=== PATIENT | female | born 1990 | race Caucasian/White ===

== ENCOUNTER 2018-08-13 20:51 | Emergency (ER) | payer BC ==
[2018-08-13 21:05] VITALS: BP 133/85; PULSE 86; TEMP 98.1; BMI 19.9
[2018-08-13] MEDS ORDERED: IBUPROFEN 600 MG TABLET (FP) PO ONE (21:06)
--- NOTE | 2018-08-13 21:06 | PDOC ---
Rapid Medical Evaluation Time Seen by Provider: 08/13/18 21:02 Medical Evaluation: 08/13/18 21:02 Pt presents to the ED for r shoulder pain after falling down a flight of steps. No LOC or head trauma. LMP 06/15/18, but hx of irregular cycles. Exam: Limited ROM in r shoulder with external rotation and abduction Orders: x-ray, motrin Pt to proceed to the ED for further evaluation Discharge Disposition - Diagnosis Shoulder pain, right - Referrals - Patient Instructions - Post Discharge Activity
--- NOTE | 2018-08-13 22:34 | PDOC ---
History of Present Illness - General Chief Complaint: Pain, Acute Stated Complaint: SHOLDER PAIN Time Seen by Provider: 08/13/18 21:02 - History of Present Illness Initial Comments: 08/13/18 22:24 27-year-old female without comorbidities presents for evaluation of right shoulder pain. She states she slipped going down the steps and somehow right arm landed behind her. She describes a subluxation. Past History - Past Medical History Allergies/Adverse Reactions: Allergies Allergy/AdvReac Type Severity Reaction Status Date / Time No Known Allergies Allergy Verified 08/13/18 21:18 Home Medications: Ambulatory Orders NK [No Known Home Medication] 08/13/18 - Suicide/Smoking/Psychosocial Hx Smoking History: Never smoked Hx Alcohol Use: No Drug/Substance Use Hx: No Review of Systems - Review of Systems Musculoskeletal: Yes: Joint Pain *Physical Exam - Vital Signs Last Vital Signs Temp Pulse Resp BP Pulse Ox 98.1 F 86 20 133/85 99 08/13/18 21:02 08/13/18 21:02 08/13/18 21:02 08/13/18 21:02 08/13/18 21:02 - Physical Exam Comments: 08/13/18 22:25 Right shoulder skin color and temperature are normal. There is diffuse nonspecific tenderness. Passive range of motion 0-30. She resist range of motion beyond that. She has full internal and external rotation without discomfort. She is unable to tolerate stability testing or super spinatus isolation. She has no gross sensorimotor deficits she is neurovascularly intact. Moderate Sedation - Procedure Monitoring Vital Signs: Procedure Monitoring Vital Signs Temperature 98.1 F 08/13/18 21:02 Pulse Rate 86 08/13/18 21:02 Respiratory Rate 20 08/13/18 21:02 Blood Pressure 133/85 08/13/18 21:02 O2 Sat by Pulse Oximetry (%) 99 08/13/18 21:02 ED Treatment Course - Medications Given in the ED: ED Medications Discontinued Medications Generic Name Dose Route Start Last Admin Trade Name Freq PRN Reason Stop Dose Admin Ibuprofen 600 mg 08/13/18 21:06 08/13/18 21:19 Motrin - PO 08/13/18 21:07 600 mg ONCE ONE Administration Medical Decision Making - Medical Decision Making 08/13/18 22:26 X-rays of the right shoulder show no evidence of fracture trauma or destructive process. I suspect a labral injury *DC/Admit/Observation/Transfer Diagnosis at time of Disposition: Shoulder pain, right, Shoulder subluxation, right - Discharge Dispostion Disposition: HOME Condition at time of disposition: Stable Decision to Admit order: No - Referrals Referrals: Christine Ramírez MD [Primary Care Provider] - Uriel Ocampo DO [Staff Physician] - - Patient Instructions Additional Instructions: Avoid activities away from your body or over head with your right arm. Did not do any strenuous exercise or sports. Follow-up with orthopedic surgery in 1-2 days for further evaluation and treatment options. Return to the emergency room should you have any further issues. Tylenol and Motrin as directed for pain. - Post Discharge Activity
== END 2018-08-13 22:38 | disposition home or self-care (01) ==
LOC: JERFT 20:51
DX: S43.081A Other subluxation of right shoulder joint, initial encounter (principal); W10.8XXA Fall (on) (from) other stairs and steps, initial encounter; Y93.89 Activity, other specified; Y92.89 Other specified places as the place of occurrence of the external cause; Y99.8 Other external cause status
CPT/HCPCS: 73030-TC-RT-FY; 99281-25

== ENCOUNTER 2018-10-21 06:06 | Day surgery (SDC) | payer BC ==
[2018-10-18 16:50] VITALS: BMI 21.7
[2018-10-21] MEDS ORDERED: EPINEPHrine/PF 1 MG/1 ML (1:1,000) AMPULE ONE (07:19)
[2018-10-21] MEDS ORDERED: SCOPOLAMINE HYDROBROMIDE 1 PATCH PATCH.TD72 ONE (07:19)
[2018-10-21] MEDS ORDERED: DEXAMETHASONE SOD PHOSPHATE/PF 10 MG/ML SDV ONE (07:19)
[2018-10-21] MEDS ORDERED: ROPIVACAINE HCL 0.5% 30ML VIAL ONE (07:20)
[2018-10-21] MEDS ORDERED: MIDAZOLAM HCL 2 MG/2 ML SINGLE DOSE VIAL ONE ×2 (07:20→07:47)
[2018-10-21] MEDS ORDERED: EPINEPHrine 1:1,000 1 MG/1 ML - 30ML VIAL (INJECTION) ONE (07:28)
[2018-10-21] MEDS ORDERED: PROPOFOL 20 ML ONE ×7 (07:46→09:39)
[2018-10-21] MEDS ORDERED: SUCCINYLCHOLINE CHLORIDE 200 MG/10 ML VIAL ONE (07:46)
[2018-10-21] MEDS ORDERED: ceFAZolin SODIUM 1 GM VIAL ONE (08:15)
[2018-10-21] MEDS ORDERED: KETOROLAC TROMETHAMINE 30 MG/1 ML VIAL ONE (08:15)
[2018-10-21] MEDS ORDERED: ONDANSETRON 4 MG/2 ML VIAL ONE (08:15)
[2018-10-21] MEDS ORDERED: DEXAMETHASONE SOD PHOSPHATE 4 MG/1 ML VIAL ONE (08:15)
[2018-10-21] MEDS ORDERED: ONDANSETRON 4 MG/2 ML VIAL IVPUSH PRN (10:14)
[2018-10-21] MEDS ORDERED: PROMETHAZINE HCL 25 MG/1 ML VIAL IVPUSH PRN (10:14)
[2018-10-21] MEDS ORDERED: oxyCODONE HCL 5 MG TABLET PO PRN ×2 (10:14)
[2018-10-21] MEDS ORDERED: ACETAMINOPHEN 325 MG TABLET (FP) PO PRN (10:15)
--- NOTE | 2018-10-21 10:17 | OPR ---
Date of Procedure: 10/21/18 Procedure: 1. Diagnostic right shoulder arthroscopy. 2. Arthroscopic anterior capsular plication (01927). 3. Debridement Preoperative Diagnoses: 1. Anterior instability. Postoperative Diagnoses: 1. Anterior instability. 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 She ultimately elected to proceed with surgical intervention after discussion of the risks, benefits, alternatives. We discussed risks including but not limited to, bleeding, pain, infection, scarring, damage to neurovascular structures, blood clots, pulmonary embolism, need for additional surgery, incomplete relief of pain, and incomplete return of function as well as recurrent instability. Ms. Miles expressed understanding and wished to proceed. Examination under Anesthesia: 2+ Anterior translational instability FF: 155 ER with arm at side: 60 ER with arm abducted: 70 Surgeon's Narrative: Ananya Miles was identified in the preoperative area. The shoulder was marked as the operative site and consent was completed and confirmed. She was given an interscalene block by The anesthesia team. She was later transferred to the operating room and placed in supine position the operating room. General anesthesia was induced without complications. She was repositioned into lateral decubitus position using a ratliff-bag, and 10 lbs of vertical traction was applied; All bony prominences were appropriately padded. The neck was in neutral alignment. A surgical time-out was performed identifying the correct patient, procedure, and site. Antibiotics were given within 1 hour prior to surgical incision. The upper extremity was prepped and draped in standard sterile fashion. Diagnostic arthroscopy: We began the procedure with the standard posterolateral portal, entered the glenohumeral joint, and an anterior superior portal was made within the rotator cuff interval under direct visualization with the assistance of a spinal needle. I inserted a crystal cannula in this anterior superior portal. A probe was used to assist with diagnostic arthroscopy and we visualized from both posteriorly and anteriorly. This revealed no significant glenohumeral chondromalacia. The rotator cuff was also intact on the undersurface. The probe was inserted into the glenohumeral joint, and the labrum was probed circumferentially. This revealed an anterior labral tear extending from 3-5:30 o'clock position on the labrum. There was a positive drive through sign. Arthroscopic limited debridement of the glenohumeral joint: We used the arthroscopic motorized shaver to perform a limited debridement inside the glenohumeral joint. The hyperemia, erythema, and synovitis of the joint and joint capsule was focally debrided. Chondral degeneration was debrided to a stable edge. Labral fraying and degeneration was also resected and debrided to a stable edge. Arthroscopic anterior capsular plication and labral repair: We began our capsular plication and anterior labral repair by first preparing the anterior glenoid bone. We used an elevator to free up the labrum inferiorly to about the 5:30 position. We rasped the medial anterior glenoid bone for a bony preparation to accept the labrum and capsule. After this was done, we used the second cannula that was placed anteroinferiorly just superior to the subscapularis tendon and placed a ribbed cannula. We used this cannula to place our sutures and anchors. A single Suture Tape was shuttled to the superior cannula and we then used a passing device to pass through the anterior-inferior capsular tissue. This was done in such a way to plicate and bring superior and medial the capsular tissue that had fallen inferiorly and laterally. The suture ends were placed through a 2.9mm PushLock anchor, and was placed at about the 5: 30 position. We placed this after drilling the glenoid bone just at the glenoid rim. The anchor was placed without difficulty. This tightened up the anterior- inferior aspect of the glenohumeral capsule. Of note, the previous drive- through sign was already eliminated from this plication stitch. We repeated these steps placing 2 additional 2.9mm PushLock anchors at 4 o'clock, 3 o'clock positions. The sutures were again shuttled appropriately to the superior cannula and a shuttling device was used to capture the anterior capsular tissue with the anterior labrum. This reapproximated the anterior labrum and capsular tissues nicely recreating anterior-inferior bumper and again recentering the humeral head well on the glenoid. Wound closure: The wounds were closed with 3-0 Monocryl sutures in buried deep stitch followed by Steri-Strips. The arm was placed in a shoulder immobilizer sling, and patient will use an ice-machine at home. The patient was awoken from anesthesia and transferred to the PACU in stable condition. Post-operative Details: I spoke with the family regarding the operation after surgery. Postoperative rehabilitation: Arthroscopic anterior capsular plication protocol. She will remain in a sling for 6 weeks. No range of motion exercises until cleared; No strengthening for at least 3 months. Attestation of first-assist: Chepe Dave DO served as first-assist during the entire case as there were no residents or qualified assistants available. Uriel Ocampo DO
[2018-10-21 11:26] VITALS: TEMP 97.6
[2018-10-21 12:44] VITALS: BP 108/60; PULSE 62
== END 2018-10-21 12:43 | disposition home or self-care (01) ==
LOC: FASU 06:06
PROVIDERS: ATTEND Orthopaedic Surgery Sports Medicine
PROC: 0RQJ4ZZ Repair Right Shoulder Joint, Percutaneous Endoscopic Approach (ICD-10-PCS; principal; 2018-10-21 08:00)
PROC: 0RBJ4ZZ Excision of Right Shoulder Joint, Percutaneous Endoscopic Approach (ICD-10-PCS; 2018-10-21 08:00)
DX: M25.311 Other instability, right shoulder (principal); M24.411 Recurrent dislocation, right shoulder; M65.811 Other synovitis and tenosynovitis, right shoulder
CPT/HCPCS: 84703; 94760

== ENCOUNTER 2021-11-29 17:56 | Emergency (ER) | payer BC, OTHER ==
[2021-11-29 18:19] VITALS: BP 116/75; PULSE 75; TEMP 98.1; BMI 23.1
[2021-11-29] MEDS ORDERED: NAPROXEN 500 MG TABLET PO ONE (19:10)
[2021-11-29] MEDS ORDERED: NAPROXEN 500 MG TABLET ONE (19:11)
== END 2021-11-29 20:05 | disposition home or self-care (01) ==
LOC: JER 17:56 → JERFT 17:56
DX: M54.50 Low back pain, unspecified (principal); V49.40XA Driver injured in collision with unspecified motor vehicles in traffic accident, initial encounter
CPT/HCPCS: 99283-25